=== PATIENT | male | born 1940 | race Caucasian/White ===

== ENCOUNTER → 2019-01-15 | Outpatient (CLI) | payer MEDICARE, BC ==
[2019-01-15 15:54] LABS: HCT (SEDRATE) 44.4 % (39.2-51.8)
[2019-01-15 16:40] LABS: CREATININE 1.17 mg/dL (0.7-1.3)
[2019-01-17 14:28] LABS: ANA SCREEN POSITIVE (Negative); ANTI-NUCLEAR ANTIBODY PATTERN SPECKLED
== END | disposition home or self-care (01) ==
LOC: CFH 14:11
PROVIDERS: ATTEND Psychiatry & Neurology Neurology
DX: R41.3 Other amnesia (principal); N17.9 Acute kidney failure, unspecified
CPT/HCPCS: 36415; 82175; 82390; 82525; 82565; 82607; 83655; 83825; 84443; 84520; 85651; 86038; 86039